=== PATIENT | female | born 1985 | race Two or more races ===

== ENCOUNTER 2017-02-20 20:26 | Emergency (ER) | payer MEDICAID ==
[~2017-02-20] VITALS: Ht 162.6 cm; Wt 63.5 kg
--- NOTE | 2017-02-20 20:40 | NUR ---
PT TO ED RLQ RADIATING TO BACK X 3 DAYS-, - N/V/D. PATIENT IS AAO4. APPEARS IN NO APPARENT DUSTRESS. RESPIRATION EVEN AND UNLABORED. VSS. JACQUIE PACHECO
--- NOTE | 2017-02-20 20:43 | NUR ---
OMID MUNOZ AT FOR BLOOD DRAW
--- NOTE | 2017-02-20 20:43 | NUR ---
URINE SAMPLE SENT TO LAB
[2017-02-20 20:47] LABS: BASOPHILS % (AUTO) 0.4 % (0.0-2.0); EOSINOPHILS # (AUTO) 0.1 /CMM (0.0-0.7); HEMATOCRIT 35 % (33-45); HEMOGLOBIN 11.7 g/dL (11.5-14.8); LYMPHOCYTES # (AUTO) 1.9 /CMM (0.8-4.8); LYMPHOCYTES % (AUTO) 25.5 % (20.0-44.0); MEAN CORPUSCULAR HEMOGLOBIN 29 PG (26.0-33.0); MEAN CORPUSCULAR HGB CONC 33 g/dl (31.0-36.0); MEAN CORPUSCULAR VOLUME 86 fL (82-100); MONOCYTES # (AUTO) 0.4 /CMM (0.1-1.30); MONOCYTES % (AUTO) 5.9 % (2.0-12.0); NEUTROPHILS # (AUTO) 5.1 /CMM (1.8-8.9); NEUTROPHILS % (AUTO) 67.2 % (43.0-81.0); PLATELET COUNT (AUTO) 228 /CMM (150-450); RDW COEFFICIENT OF VARIATION 13.9 (11.5-15.0); RED BLOOD CELL COUNT(AUTO) 4.09 MIL/uL (4.0-5.2); WHITE BLOOD COUNT (AUTO) 7.5 K/uL (4.3-11.0)
[2017-02-20 20:49] LABS: APPEARANCE,URINE Clear (CLEAR); BILIRUBIN,URINE Negative (NEGATIVE); BLOOD, URINE Large Ery/uL (NEGATIVE); COLOR,URINE Yellow (YELLOW); KETONES,URINE Negative (NEGATIVE); LEUKOCYTE ESTERASE ,URINE Negative (NEGATIVE); NITRITE, URINE Negative (NEGATIVE); PH,URINE 5.5 (5.0-8.0); PROTEIN,URINE Negative (NEGATIVE); UGLUCOSE Negative (NEGATIVE); UROBILINOGEN,URINE 0.2 EU/dL (0.2)
--- NOTE | 2017-02-20 20:50 | NUR ---
MARCI MUNOZ AT BS.
[2017-02-20 20:58] LABS: CALCIUM, SERUM 8.5 mg/dL (8.5-10.1); CREATININE 0.7 mg/dL (0.6-1.3); POTASSIUM 3.3 mmol/L (3.5-5.1)
[2017-02-20 21:01] LABS: BACTERIA,URINE Rare /HPF (None Seen); RBC,URINE 21-50 /HPF (0-2); WBC,URINE 0-2 /HPF (0-3)
[2017-02-20 21:02] LABS: SQUAMOUS EPITHELIAL CELL,UR Moderate /HPF (None Seen)
[2017-02-20 21:03] LABS: ALBUMIN 3.5 g/dL (3.4-5.0); BILIRUBIN,DIRECT 0.1 mg/dL (0.0-0.2); BILIRUBIN,TOTAL 0.2 mg/dL (0.2-1.0); TOTAL PROTEIN, SERUM 7.1 g/dL (6.4-8.2)
[2017-02-20] MEDS ORDERED: HYDROCODONE/APAP 5/325MG 1 EACH TABLET ONE (22:18)
--- NOTE | 2017-02-20 22:21 | NUR ---
PT MEDICATED ORDERED.
[2017-02-20] MEDS ORDERED: HYDROCODONE/APAP 5/325MG 1 EACH TABLET PO ONE (22:30)
--- NOTE | 2017-02-20 22:33 | NUR ---
Patient discharged to home in stable condition. Written and verbal after care instructions given. Patient verbalizes understanding of instruction.
[2017-02-20 22:37] VITALS: BP 115/74
[2017-02-21] MEDS ORDERED: HYDROMORPHONE 1 MG/1 ML DISP.SYRIN ONE (06:37)
[2017-02-21] MEDS ORDERED: ONDANSETRON HCL/PF 4 MG/2 ML VIAL ONE ×6 (06:37)
== END 2017-02-20 22:38 | disposition home or self-care (01) ==
LOC: ER 20:28
DX: N83.202 Unspecified ovarian cyst, left side (principal); M54.5 Low back pain; R31.29 Other microscopic hematuria; Z90.49 Acquired absence of other specified parts of digestive tract; Z88.6 Allergy status to analgesic agent
CPT/HCPCS: 36415; 76856; 80048; 80076; 81001; 83690; 84703; 85025; 99285; A4606; Z7610; 81000-TC; J1170; J2405

== ENCOUNTER 2017-02-21 04:47 | Emergency (ER) | payer MEDICAID ==
[~2017-02-21] VITALS: Ht 162.6 cm; Wt 63.5 kg
--- NOTE | 2017-02-21 09:00 | NUR ---
PLEASE SEE PATIENT CHART FOR ALL DOWNTIME FORMS. [employer] NOW UP AND RUNNING. TRIAGE AND INTERVENTIONS RE-ENTERED INTO [employer] PER DR. DORAN. PATIENT REMAINS STABLE, WILL CONTINUE TO MONITOR.
--- NOTE | 2017-02-21 09:21 | NUR ---
US TECH AT BEDSIDE.
[2017-02-21] MEDS ORDERED: KETOROLAC TROMETHAMINE INJ 30 MG/ML VIAL IV ONE (10:00)
[2017-02-21] MEDS ORDERED: KETOROLAC TROMETHAMINE 15 MG/ML VIAL ONE (10:04)
--- NOTE | 2017-02-21 10:38 | NUR ---
IV removed. Catheter intact and site benign. Pressure and 4x4 applied to site. No bleeding noted.Patient discharged to home in stable condition. Written and verbal after care instructions given. Patient verbalizes understanding of instruction. ambulatory with a steady gait.
[2017-02-21 10:39] VITALS: BP 117/65
[2017-02-21 13:19] LABS: ALBUMIN 3.6 g/dL (3.4-5.0); BILIRUBIN,TOTAL 0.3 mg/dL (0.2-1.0); CALCIUM, SERUM 8.2 mg/dL (8.5-10.1); CREATININE 0.7 mg/dL (0.6-1.3); POTASSIUM 3.3 mmol/L (3.5-5.1); TOTAL PROTEIN, SERUM 7.1 g/dL (6.4-8.2)
[2017-02-21 13:54] LABS: APPEARANCE,URINE SL. CLOUDY (CLEAR); COLOR,URINE YELLOW (YELLOW)
[2017-02-21 13:55] LABS: BLOOD, URINE 3+ Ery/uL (NEGATIVE); PROTEIN,URINE 1+ mg/dl (NEGATIVE); UGLUCOSE NEGATIVE (NEGATIVE)
[2017-02-21 13:56] LABS: BILIRUBIN,URINE 1+ (NEGATIVE); KETONES,URINE NEGATIVE (NEGATIVE); LEUKOCYTE ESTERASE ,URINE TRACE (NEGATIVE); NITRITE, URINE NEGATIVE (NEGATIVE); UROBILINOGEN,URINE 0.2 EU/dL (0.2)
[2017-02-21 14:00] LABS: BACTERIA,URINE FEW /HPF (None Seen); SQUAMOUS EPITHELIAL CELL,UR MODERATE /HPF (None Seen)
[2017-02-21 14:26] LABS: BASOPHILS % (AUTO) 0.4 % (0.0-2.0); EOSINOPHILS % (AUTO) 1.1 % (0.0-6.0); HEMATOCRIT 36 % (33-45); HEMOGLOBIN 11.6 g/dL (11.5-14.8); LYMPHOCYTES % (AUTO) 23.2 % (20.0-44.0); MEAN CORPUSCULAR HEMOGLOBIN 28 PG (26.0-33.0); MEAN CORPUSCULAR HGB CONC 33 g/dl (31.0-36.0); MEAN CORPUSCULAR VOLUME 87 fL (82-100); MONOCYTES % (AUTO) 7.3 % (2.0-12.0); PLATELET COUNT (AUTO) 173 /CMM (150-450); RDW COEFFICIENT OF VARIATION 14.9 (11.5-15.0); RED BLOOD CELL COUNT(AUTO) 4.07 MIL/uL (4.0-5.2); WHITE BLOOD COUNT (AUTO) 6.9 K/uL (4.3-11.0)
[2017-02-21 14:27] LABS: EOSINOPHILS # (AUTO) 0.1 /CMM (0.0-0.7); LYMPHOCYTES # (AUTO) 1.6 /CMM (0.8-4.8); MONOCYTES # (AUTO) 0.5 /CMM (0.1-1.30); NEUTROPHILS # (AUTO) 4.7 /CMM (1.8-8.9)
== END 2017-02-21 10:39 | disposition home or self-care (01) ==
LOC: ER 04:47
DX: K59.00 Constipation, unspecified (principal); N83.201 Unspecified ovarian cyst, right side; N83.202 Unspecified ovarian cyst, left side; Z90.49 Acquired absence of other specified parts of digestive tract; Z88.6 Allergy status to analgesic agent
CPT/HCPCS: 36415; 74176; 76856; 80053; 80061; 81001; 84703; 85025; 96374; 99285; A4606; J1885; Z7610; 81000-TC

== ENCOUNTER 2017-07-30 16:53 | Emergency (ER) | payer MEDICAID, OTHER ==
[~2017-07-30] VITALS: Ht 162.6 cm; Wt 59.0 kg
[2017-07-30] MEDS ORDERED: KETOROLAC TROMETHAMINE INJ 30 MG/ML VIAL IM ONE (17:30)
[2017-07-30] MEDS ORDERED: ONDANSETRON 4 MG TAB.RAPDIS PO ONE (17:30)
[2017-07-30] MEDS ORDERED: ACETAMINOPHEN ES 500 MG TABLET PO ONE (17:30)
[2017-07-30] MEDS ORDERED: ACETAMINOPHEN ES 500 MG TABLET ONE (17:38)
[2017-07-30] MEDS ORDERED: ONDANSETRON 4 MG TAB.RAPDIS ONE (17:38)
[2017-07-30] MEDS ORDERED: KETOROLAC TROMETHAMINE INJ 30 MG/ML VIAL ONE (17:38)
[2017-07-30] MEDS ORDERED: METOCLOPRAMIDE HCL 10 MG/2 ML VIAL ONE (18:40)
[2017-07-30] MEDS ORDERED: diphenhydrAMINE HCL 50 MG/ML VIAL ONE (18:40)
[2017-07-30] MEDS ORDERED: IV NS 0.9% 1,000 ML BAG IV ONE (19:00)
[2017-07-30] MEDS ORDERED: diphenhydrAMINE HCL 50 MG/ML VIAL IV ONE (19:00)
[2017-07-30] MEDS ORDERED: METOCLOPRAMIDE HCL 10 MG/2 ML VIAL IV ONE (19:00)
[2017-07-30 19:06] VITALS: BP 108/77
--- NOTE | 2017-07-30 19:06 | NUR ---
RECEIVED REPORT FROM NELLI REEVES. PT APPEARS COMFORTABLE.
--- NOTE | 2017-07-30 19:31 | NUR ---
PAUL FOSTER AT BEDSIDE SPEAKING TO PT REGARDING RESULTS/ POC
--- NOTE | 2017-07-30 19:43 | NUR ---
IV removed. Catheter intact and site benign. Pressure and 4x4 applied to site. No bleeding noted. DPatient discharged to home in stable condition. Written and verbal after care instructions given. Patient verbalizes understanding of instruction. ambulatory with a steady gait. instructed not to drive. pt verbalize understanding. pt with .
== END 2017-07-30 19:45 | disposition home or self-care (01) ==
LOC: ER 16:57
DX: G43.909 Migraine, unspecified, not intractable, without status migrainosus (principal); Z88.5 Allergy status to narcotic agent
CPT/HCPCS: A4606; J1200; J1885; J2765; J7030; Q0162; Z7610

== ENCOUNTER 2018-11-27 21:13 | Emergency (ER) | payer OTHER ==
[~2018-11-27] VITALS: Ht 160 cm; Wt 61.2 kg
[2018-11-27 21:21] VITALS: BP 126/80
[2018-11-27] MEDS ORDERED: IBUPROFEN 600 MG TABLET PO ONE ×2 (21:53→22:00)
[2018-11-27] MEDS ORDERED: DEXAMETHASONE SOD PHOSPHATE 10 MG/ML VIAL ONE (21:53)
[2018-11-27] MEDS ORDERED: DEXAMETHASONE SOD PHOSPHATE 4 MG/ML VIAL IM ONE (22:00)
[2018-11-27 22:05] LABS: APPEARANCE,URINE Clear (CLEAR); BILIRUBIN,URINE Negative (NEGATIVE); BLOOD, URINE Trace-intact Ery/uL (NEGATIVE); COLOR,URINE Yellow (YELLOW); KETONES,URINE Negative (NEGATIVE); LEUKOCYTE ESTERASE ,URINE Negative (NEGATIVE); NITRITE, URINE Negative (NEGATIVE); PH,URINE 6.5 (5.0-8.0); PROTEIN,URINE Negative (NEGATIVE); UGLUCOSE Negative (NEGATIVE); UROBILINOGEN,URINE 0.2 EU/dL (0.2)
[2018-11-27 22:23] LABS: BACTERIA,URINE Few /HPF (None Seen); SQUAMOUS EPITHELIAL CELL,UR Few /HPF (None Seen)
== END 2018-11-27 23:13 | disposition home or self-care (01) ==
LOC: ER 21:19
DX: M54.42 Lumbago with sciatica, left side (principal); G89.29 Other chronic pain; Z98.890 Other specified postprocedural states; Z88.5 Allergy status to narcotic agent
CPT/HCPCS: 81001; 84703; 96372; 99283; J1100; 81000-TC

== ENCOUNTER 2020-12-05 15:30 | Emergency (ER) | payer BC, OTHER ==
[~2020-12-05] VITALS: Ht 162.6 cm; Wt 61.2 kg
--- NOTE | 2020-12-05 15:47 | NUR ---
35 years old female alert oriented time 4 walking to with teady gait c/o low back pain for 1 month.
[2020-12-05] MEDS ORDERED: KETOROLAC TROMETHAMINE INJ 60 MG/2 ML VIAL IM ONE (16:30)
[2020-12-05] MEDS ORDERED: TRAMADOL HCL 50 MG TABLET PO ONE (16:30)
[2020-12-05] MEDS ORDERED: KETOROLAC TROMETHAMINE INJ 30 MG/ML VIAL ONE (16:43)
[2020-12-05] MEDS ORDERED: TRAMADOL HCL 50 MG TABLET ONE (16:43)
[2020-12-05 17:32] LABS: BILIRUBIN,URINE NEGATIVE (NEGATIVE); COLOR,URINE YELLOW (YELLOW); LEUKOCYTE ESTERASE ,URINE NEGATIVE (NEGATIVE); NITRITE, URINE NEGATIVE (NEGATIVE); PROTEIN,URINE NEGATIVE (NEGATIVE); UGLUCOSE NEGATIVE (NEGATIVE); UROBILINOGEN,URINE 0.2 EU/dL (0.2)
[2020-12-05 17:48] LABS: BACTERIA,URINE None seen /HPF (None Seen); RBC,URINE 0-2 /HPF (0-2); SQUAMOUS EPITHELIAL CELL,UR Few /HPF (None Seen); URINE AMORPHOUS URATE Few /HPF (None Seen); WBC,URINE 0-2 /HPF (0-3)
[2020-12-05] MEDS ORDERED: METH4TAB17 PO (18:27)
[2020-12-05 18:29] VITALS: BP 118/70
== END 2020-12-05 18:37 | disposition home or self-care (01) ==
LOC: ER 15:30
DX: G89.29 Other chronic pain (principal); M54.42 Lumbago with sciatica, left side; M53.3 Sacrococcygeal disorders, not elsewhere classified; Z98.890 Other specified postprocedural states; Z88.6 Allergy status to analgesic agent
CPT/HCPCS: 72110; 72170; 81001; 84703; 96372; 99284; J1885

== ENCOUNTER 2023-07-31 02:51 | Emergency (ER) | payer BC, MEDICAID, OTHER ==
[~2023-07-31] VITALS: Ht 162.6 cm; Wt 63.5 kg
[~2023-07-31 02:51] MED LIST: METH4TAB17 PO
[2023-07-31 03:57] VITALS: TEMP 98.9
[2023-07-31] MEDS: IV NS 0.9% 1,000 ML BAG IV ONE (04:00)
[2023-07-31] MEDS ORDERED: ONDANSETRON HCL/PF 4 MG/2 ML VIAL ONE (04:03)
[2023-07-31] MEDS ORDERED: KETOROLAC TROMETHAMINE INJ 30 MG/ML VIAL ONE (04:03)
[2023-07-31] MEDS: ONDANSETRON HCL/PF 4 MG/2 ML VIAL IVP ONE (04:05)
[2023-07-31] MEDS: KETOROLAC TROMETHAMINE 15 MG/ML VIAL IV ONE (04:10)
[2023-07-31 04:12] LABS: ADD URINE CULTURE NO; APPEARANCE,URINE CLEAR (CLEAR); BACTERIA,URINE Rare /HPF (None Seen); BILIRUBIN,URINE NEGATIVE (NEGATIVE); BLOOD, URINE TRACE-INTA Ery/uL (NEGATIVE); COLOR,URINE YELLOW (YELLOW); KETONES,URINE NEGATIVE (NEGATIVE); LEUKOCYTE ESTERASE ,URINE NEGATIVE (NEGATIVE); NITRITE, URINE NEGATIVE (NEGATIVE); PH,URINE 5.5 (5.0-8.0); PREGNANCY TEST URINE QUAL NEGATIVE (NEGATIVE); PROTEIN,URINE NEGATIVE (NEGATIVE); SQUAMOUS EPITHELIAL CELL,UR Rare /HPF (None Seen); UGLUCOSE NEGATIVE (NEGATIVE); UROBILINOGEN,URINE 0.2 EU/dL (0.2); WBC,URINE 0-2 /HPF (0-3)
[2023-07-31 04:22] LABS: BASOPHILS % (AUTO) 0.4 % (0.0-2.0); EOSINOPHILS # (AUTO) 0.1 K/uL (0.0-0.7); EOSINOPHILS % (AUTO) 0.8 % (0.0-6.0); HEMATOCRIT 36 % (33-45); HEMOGLOBIN 11.9 g/dL (11.5-14.8); LYMPHOCYTES # (AUTO) 2.5 K/uL (0.8-4.8); LYMPHOCYTES % (AUTO) 38.9 % (20.0-44.0); MEAN CORPUSCULAR HEMOGLOBIN 30 PG (26.0-33.0); MEAN CORPUSCULAR HGB CONC 33 g/dl (31.0-36.0); MEAN CORPUSCULAR VOLUME 89 fL (82-100); MONOCYTES # (AUTO) 0.5 K/uL (0.1-1.30); MONOCYTES % (AUTO) 8.3 % (2.0-12.0); NEUTROPHILS # (AUTO) 3.3 K/uL (1.8-8.9); NEUTROPHILS % (AUTO) 51.6 % (43.0-81.0); PLATELET COUNT (AUTO) 207 K/uL (150-450); RED BLOOD CELL COUNT(AUTO) 4.02 MIL/uL (4.0-5.2); RED CELL DISTRIBUTION WIDTH 14.9 % (11.5-15.0); WHITE BLOOD COUNT (AUTO) 6.4 K/uL (4.3-11.0)
[2023-07-31 04:38] LABS: ALBUMIN 3.6 g/dL (3.4-5.0); BILIRUBIN,DIRECT 0.1 mg/dL (0.0-0.2); BILIRUBIN,TOTAL 0.4 mg/dL (0.2-1.0); CALCIUM, SERUM 8.9 mg/dL (8.5-10.1); CREATININE 0.8 mg/dL (0.6-1.3); INR 1.02 (0.91-1.10); PARTIAL THROMBOPLASTIN TIME 29.4 SEC (24.3-34.3); POTASSIUM 3.5 mmol/L (3.5-5.1); PROTHROMBIN TIME 10.8 SECS (9.2-11.1)
[2023-07-31] MEDS ORDERED: MORPHINE SULFATE INJ 4 MG/ML DISP.SYRIN ONE (04:58)
[2023-07-31] MEDS: MORPHINE SULFATE INJ 2 MG/ML DISP.SYRIN IV ONE (05:02)
[2023-07-31 05:39] VITALS: BP 138/79; O2SAT 99
== END 2023-07-31 05:39 | disposition home or self-care (01) ==
LOC: ER 02:58
DX: N83.202 Unspecified ovarian cyst, left side (principal); R10.2 Pelvic and perineal pain; Z90.49 Acquired absence of other specified parts of digestive tract; Z79.899 Other long term (current) drug therapy
CPT/HCPCS: 99285; 74176; 96374; 76856; 96375; 96361; 85025; 80048; 83690; 80076; 84703; 81001; 36415; 85730; J2270; J1885; J2405; J7030